=== PATIENT | male | born 1940 | race African-American/Black ===

== ENCOUNTER 2018-10-07 16:31 | Emergency (ER) | payer OTHER ==
[2018-10-07] MEDS ORDERED: MECLIZINE HCL 25 MG TABLET (FP) PO ONE (16:47)
[2018-10-07] MEDS ORDERED: SODIUM CHLORIDE 1,000 ML IV STA (16:47)
[2018-10-07 16:51] VITALS: BMI 29.8
--- NOTE | 2018-10-07 16:51 | PDOC ---
History of Present Illness - General Stated Complaint: SOB Time Seen by Provider: 10/07/18 16:41 History Source: Patient - History of Present Illness Timing/Duration: other (this am) Severity: moderate Associated Symptoms: denies: chest pain, headaches, nausea/vomiting, shortness of breath, syncope, weakness Past History - Past Medical History Allergies/Adverse Reactions: Allergies Allergy/AdvReac Type Severity Reaction Status Date / Time No Known Allergies Allergy Verified 04/21/12 14:02 Home Medications: Ambulatory Orders Amlodipine Besylate/Valsartan [Amlodipine-Valsartan 10-160 mg] 1 each PO DAILY 10/07/18 Simvastatin 10 mg PO HS 10/07/18 Anemia: No Asthma: No Cancer: No Cardiac Disorders: No CVA: No COPD: No CHF: No Dementia: No Diabetes: No GI Disorders: No Disorders: No HTN: Yes Hypercholesterolemia: No Liver Disease: No Seizures: No Thyroid Disease: No - Surgical History Abdominal Surgery: Yes (DUE TO STOMACH PERFORATION) Appendectomy: No Cardiac Surgery: No Cholecystectomy: No Lung Surgery: No Neurologic Surgery: No Orthopedic Surgery: No - Suicide/Smoking/Psychosocial Hx Smoking History: Former smoker Have you smoked in the past 12 months: No If you are a former smoker, when did you quit?: 1985 Hx Alcohol Use: No Drug/Substance Use Hx: No Review of Systems - Review of Systems Constitutional: No: Chills, Fever HEENTM: No: Blurred Vision Respiratory: No: Shortness of Breath Cardiac (ROS): No: Chest Pain, Palpitations ABD/GI: No: Nausea, Vomiting Neurological: No: Headache, Numbness, Tingling, Weakness *Physical Exam - Physical Exam General Appearance: Yes: Appropriately Dressed. No: Apparent Distress HEENT: positive: Normal Voice, Other (L conjunctival erythema c/w subconj hemorrhage (started spontaneously 5 days ago, painless)) Neck: positive: Supple Respiratory/Chest: positive: Lungs Clear, Normal Breath Sounds. negative: Respiratory Distress Cardiovascular: positive: Regular Rate, S1, S2 Gastrointestinal/Abdominal: positive: Soft. negative: Tender Extremity: positive: Normal Inspection Integumentary: positive: Dry, Warm Neurologic: positive: Fully Oriented, Alert, Normal Mood/Affect, Motor Strength 5/5, Finger to Nose. negative: Facial Droop, Disoriented (no nystagmus, Kandy intact, no drift, no ataxia) ED Treatment Course - LABORATORY CBC & Chemistry Diagram: 10/07/18 17:07 10/07/18 17:07 - RADIOLOGY Radiology Studies Ordered: Category Date Time Status CHEST X-RAY PORTABLE* [RAD] Stat Radiology 10/07/18 16:46 Ordered Medical Decision Making - Medical Decision Making 10/07/18 16:48 78-year-old male, s/p surgery for perforated viscus remotely, high blood pressure, ? on blood thinners, here with dizziness. Patient reports sensation of the room spinning mostly upon standing up and walking, resolved at rest. No headache, nausea, vomiting, visual changes, focal weakness, chest pain or shortness of breath. No history of similar symptoms. Also c/o L conjunc erythema x 4 days. No pain, visual changes, tearing or discharge. Denies any trauma. Not on blood thinners per pt N See exam Vertigo Possibly peripheral vs central Stable w/ intact neuro exam -trial of meclizine -ekg/cxr/labs r/o other source -reassess Subconj hemorrhage No trauma or other inciting factors Not on bloodthinners -reassurance given 10/07/18 18:56 Creatinine 1.5, rest of labs unremarkable (no prior cr on record here). CTH as normal. On reassessment, patient states dizziness has mildly improved and req to eat at this time. Will give dose of valium and reassess. Signed out to JACQUELINE Stokes at this time *DC/Admit/Observation/Transfer Diagnosis at time of Disposition: Vertigo Conjunctival hemorrhage Qualifiers: Laterality: left Qualified Code(s): H11.32 - Conjunctival hemorrhage, left eye - Referrals Referrals: Patricia Bellamy MD [Primary Care Provider] - - Patient Instructions - Post Discharge Activity
[2018-10-07 17:13] LABS: BASO % 0.7 % (0-2.0); HEMATOCRIT 48.5 % (35.4-49); HEMOGLOBIN 16.3 GM/dL (11.7-16.9); LYMPH % 23.9 % (8-40); MCH 27.2 pg (25.7-33.7); MCHC 33.5 g/dl (32.0-35.9); MEAN CELL VOLUME 81.1 fl (80-96); MEAN PLT VOLUME 8.8 fl (7.5-11.1); MONO % 8.3 % (3.8-10.2); NEUT % 66.1 % (42.8-82.8); PLATELET COUNT 148 K/MM3 (134-434); RBC 5.98 M/mm3 (4.00-5.60); WHITE BLOOD COUNT 4.5 K/mm3 (4.0-10.0)
[2018-10-07] MEDS ORDERED: MECLIZINE HCL 25 MG TABLET (FP) ONE (17:14)
[2018-10-07 17:40] LABS: ALK PHOS 149 U/L (45-117); ANION GAP 9 MMOL/L (8-16); BILIRUBIN,TOTAL 0.4 mg/dL (0.2-1); BLOOD UREA NITROGEN 15 mg/dL (7-18); CALCIUM 8.8 mg/dL (8.5-10.1); CHLORIDE 106 mmol/L (98-107); CO2 27 mmol/L (21-32); CREATININE 1.5 mg/dL (0.55-1.3); GLUCOSE,RANDOM 158 mg/dL (74-106); LIPASE 158 U/L (73-393); POTASSIUM 3.9 mmol/L (3.5-5.1); SGOT/AST 21 U/L (15-37); SGPT/ALT 20 U/L (13-61); SODIUM 142 mmol/L (136-145); TOT PROT 7.6 g/dl (6.4-8.2)
[2018-10-07 18:42] LABS: URINE APPEARANCE CLEAR; URINE BILIRUBIN NEGATIVE (<2.0 mg/dL); URINE COLOR LTYELLOW; URINE GLUCOSE (UA) NEGATIVE (NEGATIVE); URINE KETONE NEGATIVE (NEGATIVE); URINE LEUK ESTERASE NEGATIVE (NEGATIVE); URINE NITRITE NEGATIVE (NEGATIVE); URINE PROTEIN NEGATIVE (NEGATIVE); URINE UROBILINOGEN NEGATIVE mg/dL (0.2-1.0)
[2018-10-07] MEDS ORDERED: diazePAM 5 MG TABLET PO ONE (18:56)
[2018-10-07] MEDS ORDERED: diazePAM 5 MG TABLET ONE (19:40)
--- NOTE | 2018-10-07 20:55 | PDOC ---
*Physical Exam - Vital Signs Last Vital Signs Temp Pulse Resp BP Pulse Ox 98.3 F 78 16 142/70 100 10/07/18 18:27 10/07/18 18:27 10/07/18 18:27 10/07/18 18:27 10/07/18 18:27 ED Treatment Course - LABORATORY CBC & Chemistry Diagram: 10/07/18 17:07 10/07/18 17:07 - ADDITIONAL ORDERS Additional order review: Laboratory Results 10/07/18 10/07/18 18:30 17:07 Sodium 142 Potassium 3.9 Chloride 106 Carbon Dioxide 27 Anion Gap 9 BUN 15 Creatinine 1.5 H Creat Clearance w eGFR 45.50 Random Glucose 158 H Calcium 8.8 Total Bilirubin 0.4 AST 21 ALT 20 Alkaline Phosphatase 149 H Creatine Kinase 149 Troponin I < 0.02 Total Protein 7.6 Albumin 4.0 Lipase 158 Urine Color Ltyellow Urine Appearance Clear Urine pH 6.0 Ur Specific [place] 1.017 Urine Protein Negative Urine Glucose (UA) Negative Urine Ketones Negative Urine Blood Negative Urine Nitrite Negative Urine Bilirubin Negative Urine Urobilinogen Negative Ur Leukocyte Esterase Negative 10/07/18 17:07 RBC 5.98 H MCV 81.1 MCHC 33.5 RDW 14.0 MPV 8.8 Neutrophils % 66.1 Lymphocytes % 23.9 Monocytes % 8.3 Eosinophils % 1.0 Basophils % 0.7 - Medications Given in the ED: ED Medications Discontinued Medications Generic Name Dose Route Start Last Admin Trade Name Freq PRN Reason Stop Dose Admin Diazepam 5 mg 10/07/18 18:56 10/07/18 19:48 Valium - PO 10/07/18 18:57 5 mg ONCE ONE Administration Sodium Chloride 1,000 mls @ 1,000 mls/hr 10/07/18 16:47 10/07/18 17:15 Normal Saline - IV 10/07/18 17:46 1,000 mls/hr ASDIR STA Administration Meclizine HCl 25 mg 10/07/18 16:47 10/07/18 17:20 Antivert - PO 10/07/18 16:48 25 mg ONCE ONE Administration Medical Decision Making - Medical Decision Making 10/07/18 21:13 patient is feeling better. will d/c home. no dizziness at this time. *DC/Admit/Observation/Transfer Diagnosis at time of Disposition: Vertigo Conjunctival hemorrhage Qualifiers: Laterality: left Qualified Code(s): H11.32 - Conjunctival hemorrhage, left eye - Discharge Dispostion Disposition: HOME - Prescriptions Prescriptions: Meclizine HCl [Antivert -] 25 mg PO TID PRN #21 tablet PRN Reason: Vertigo - Referrals Referrals: Patricia Edward MD [Primary Care Provider] - Call tomorrow - Patient Instructions Printed Discharge Instructions: DI for Vertigo Additional Instructions: please follow up with dr. edward. take meclizine as prescribed, Additional Instructions: * Please call your personal physician to report your Emergency Department visit and to report your progress, if any. * If there is no improvement in symptoms in 2 days call your physician. * Return to the Emergency Department for any worsening symptoms. - Post Discharge Activity
[2018-10-07 21:06] VITALS: BP 130/60; TEMP 97.8
[2018-10-07 21:24] VITALS: PULSE 75
--- NOTE | 2018-10-08 09:53 | EKG ---
Test Reason : Blood Pressure : / mmHG Vent. Rate : 080 BPM Atrial Rate : 080 BPM P-R Int : 170 ms QRS Dur : 084 ms QT Int : 388 ms P-R-T Axes : 049 -28 013 degrees QTc Int : 447 ms SINUS RHYTHM WITH FREQUENT PREMATURE VENTRICULAR COMPLEXES OTHERWISE NORMAL ECG NO PREVIOUS ECGS AVAILABLE Confirmed by ZAY ESCOBAR, MARIO ([id number]) on 10/08/2018 9:53:35 AM Referred By: Confirmed By:MARIO COLLAZO MD
== END 2018-10-07 21:36 | disposition home or self-care (01) ==
LOC: JER 16:31
PROC: 3E0337Z Introduction of Electrolytic and Water Balance Substance into Peripheral Vein, Percutaneous Approach (ICD-10-PCS; principal; 2018-10-07)
DX: R42 Dizziness and giddiness (principal); H11.32 Conjunctival hemorrhage, left eye; I10 Essential (primary) hypertension
CPT/HCPCS: 36415; 70450-TC; 71045-TC-FY; 80053; 81003; 82550; 83690; 84484; 85025; 93005; 93010; 96360; 99283-25; J7030